=== PATIENT | female | born 1985 | race Hispanic/Latino ===

== ENCOUNTER 2017-08-26 23:29 | Emergency (ER) | payer OTHER | END 2017-08-27 00:35 | disposition home or self-care (01) | LOC: EDH 23:29 | DX: J02.9 Acute pharyngitis, unspecified (principal); R11.10 Vomiting, unspecified; H92.09 Otalgia, unspecified ear ==

== ENCOUNTER 2017-10-22 19:42 | Emergency (ER) | payer OTHER ==
[2017-10-22] MEDS ORDERED: ACETAMINOPHEN EXTRA STRENGTH 500 MG TABLET ONE (20:47)
[2017-10-22] MEDS ORDERED: ONDANSETRON ODT 4 MG TAB ONE (20:47)
[2017-10-22 21:06] LABS: BASOPHILS % (AUTO) 0.4 % (0.0-5.0); EOSINOPHILS % (AUTO) 0.9 % (0.0-8.0); HEMATOCRIT 41.2 % (36-48); LYMPHOCYTES % (AUTO) 33.9 % (21.0-51.0); MEAN CORPUSCULAR HGB CONC 34.4 g/dL (32.0-36.0); MEAN CORPUSCULAR VOLUME 81.5 fL (79-99); MONOCYTES % (AUTO) 4.7 % (3.0-13.0); NEUTROPHILS % (AUTO) 60.1 % (40.0-77.0); PLATELET COUNT (AUTO) 397 K/uL (130-400); RED BLOOD CELL COUNT(AUTO) 5.05 MIL/uL (4.00-5.50); RED CELL DISTRIBUTION WIDTH 13.3 % (11.0-15.5); WHITE BLOOD COUNT (AUTO) 10.6 K/uL (4.8-10.8)
[2017-10-22 21:14] LABS: CREATININE 0.7 mg/dL (0.5-1.5); POTASSIUM 3.8 mmol/L (3.5-5.1)
[2017-10-22 21:14] LABS: APPEARANCE,URINE Clear (CLEAR); BILIRUBIN,URINE Negative (NEGATIVE); COLOR,URINE Yellow (YELLOW); GLUCOSE, URINE (UA) Negative (NEGATIVE); KETONES,URINE 40 mg/dL (NEGATIVE); LEUKOCYTE ESTERASE ,URINE Trace (NEGATIVE); NITRATE,URINE Negative (NEGATIVE); OCCULT BLOOD,URINE Moderate (NEGATIVE); PROTEIN,URINE Negative (NEGATIVE)
[2017-10-22 21:19] LABS: ALBUMIN 3.7 g/dL (3.5-5.0); BILIRUBIN,TOTAL 0.1 mg/dL (0.2-1.0); TOTAL PROTEIN, SERUM 7.9 g/dL (6.0-8.3)
[2017-10-22 21:22] LABS: HCG,QUAL RESULT NEGATIVE (NEGATIVE)
[2017-10-22 21:26] LABS: BACTERIA,URINE Rare /HPF (None Seen); RBC,URINE None Seen /HPF (0-1); SQUAMOUS EPITHELIAL CELL,UR 0-2 /HPF (0-2)
== END 2017-10-22 21:55 | disposition home or self-care (01) ==
LOC: EDH 19:42
DX: J02.9 Acute pharyngitis, unspecified (principal); H92.09 Otalgia, unspecified ear; R10.13 Epigastric pain
CPT/HCPCS: 36415; 80053; 81001; 81025; 83690; 85025; 87880; 93005

== ENCOUNTER 2024-06-17 16:22 | Emergency (ER) | payer BC ==
[~2024-06-17] VITALS: Ht 157.5 cm; Wt 68.0 kg
[~2024-06-17 16:22] MED LIST: METH-662 PO
[2024-06-17] MEDS: acetaMINOPHEN 500 MG TABLET PO SCH (16:36)
--- NOTE | 2024-06-17 17:25 | ERN ---
General Chief Complaint: Mechanical Fall Stated Complaint: FALL Time Seen by MD: 16:25 Source: patient History of Present Illness Initial Comments PATIENT IS A 38-YEAR-OLD FEMALE COMING IN TO BE EVALUATED HER LEFT KNEE. PER PATIENT SHE WAS WALKING INTO A PEDIATRIC CLINIC AND SLIPPED ON WET FLOOR LANDING ON HER LEFT KNEE. SHE STATES THAT SHE WAS PAIN IN HER LEFT KNEE THAT IS E XACERBATED WITH MOVEMENT. Allergies: Coded Allergies: No Known Drug Allergies (Unverified Allergy, Unknown, 12/25/18) Home Meds Active Scripts Methocarbamol (Robaxin) 750 Mg Tab, 750 MG PO TIDP PRN for PAIN, #9 TAB Prov:MARTHA JOHNSTON 09/11/23 Past Medical History Past Medical History: No Pertinent History Past Surgical History: Other Surgical History Other: FALLOPIAN TUBE REMOVAL ROS Dictation CONSTITUTIONAL: NO CHILLS, NO FEVER, NO WEAKNESS, NO DIAPHORESIS, NO MALAISE. HEAD/FACE: NO SIGNS OF TRAUMA. EENT: NO EYE PAIN, NO BLURRED VISION, NO TEARING, NO DOUBLE VISION, NO EAR PAIN, NO EAR DISCHARGE, NO NOSE PAIN, NO NASAL CONGESTION, NO THROAT PAIN, NO THROAT SWELLING, NO MOUTH PAIN. RESPIRATORY: NO COUGH, NO ORTHOPNEA, NO SOB, NO STRIDOR, NO WHEEZING. CARDIOVASCULAR: NO CHEST PAIN, NO EDEMA, NO PALPITATIONS, NO SYNCOPE. GASTROINTESTINAL/ABDOMINAL: NO ABDOMINAL PAIN, NO CONSTIPATION, NO DIARRHEA, NO NAUSEA, NO VOMITING. GENITOURINARY: NO ABNORMAL DISCHARGE, NO DYSURIA, NO FREQUENT URINATION, NO HEMATURIA. NO COMPLAINTS OF PAIN IN THE GENITALS. MUSCULOSKELETAL: NO BACK PAIN, NO GOUT, NO JOINT PAIN, NO JOINT SWELLING, NO MUSCLE PAIN, NO MUSCLE STIFFNESS, NO NECK PAIN. INTEGUMENTARY: NO CHANGE IN COLOR, NO CHANGE IN HAIR/NAILS, NO DRYNESS, NO LESION, NO LUMPS, NO RASH. NEUROLOGICAL/PSYCH: NO ANXIETY, NOT DEPRESSED, NO EMOTIONAL PROBLEM, NO H EADACHE, NO NUMBNESS, NO PRE-EXISTING DEFICIT, NO HISTORY OF SEIZURES, NO TREMORS, NO WEAKNESS. HEMATOLOGIC/LYMPHATIC: NOT ANEMIC, NO HISTORY OF BLOOD CLOTS, NO APPARENT BLEEDING, NO BRUISING, GLANDS NOT SWOLLEN. ALL SYSTEMS NEGATIVE, EXCEPT NOTED. Physical Exam Physical Exam Dictation VITAL SIGNS: REVIEWED. GENERAL APPEARANCE: ALERT, ORIENTED X3, NO ACUTE DISTRESS, OBESE. HEAD AND FACE: NON-TRAUMATIC. EYES: PERRL, PINK CONJUNCTIVAS, EYELID NO TRAUMA, ANTERIOR CHAMBER CLEAR. EARS: PINNAS INTACT AND NO SIGNS OF TRAUMA OR ERYTHEMA. EAR CANALS CLEAR AND NO DISCHARGE. TMS NO ERYTHEMA. NOSE: NO DISCHARGE, NO BLEEDING. OROPHARYNX: MOUTH NORMAL, TEETH NO CARIES, TONGUE PINK. PHARYNX CLEAR, NO ERYTHEMA. TONSILS NO EXUDATES, NO ABSCESSES NOTED. MUCOUS MEMBRANE MOIST. NECK: SUPPLE, NON-TENDER, NO THYROMEGALY, NO MASSES, NO JVD, NO BRUITS. BREAST: DEFERRED. CHEST: NO TENDERNESS, NO CREPITUS, NO PARADOXICAL MOVEMENT, NO RETRACTIONS. LUNGS: CLEAR, WELL-VENTILATED, SYMMETRIC, NO RALES, NO WHEEZING, NO RHONCHI, NO STRIDOR, GOOD BREATH SOUNDS BILATERALLY. HEART: REGULAR RATE, REGULAR RHYTHM, NO MURMUR, NO GALLOPS. VASCULAR: NO PERIPHERAL EDEMA. ABDOMEN: SOFT, POSITIVE BOWEL SOUNDS, NONDISTENDED, NO GUARDING, NONTENDER, NO REBOUND, NO MASSES NO HEPATOMEGALY, NO SPLENOMEGALY, NO RODRIGUEZ'S SIGN, NO HERNIAS. RECTAL: DEFERRED. GENITAL: DEFERRED. NEUROLOGICAL: NORMAL SPEECH, GROSS MOTOR FUNCTION INTACT, GROSS SENSORY FUNCTION INTACT. MUSCULOSKELETAL: NECK NONTENDER, FULL RANGE OF MOTION, BACK NONTENDER, FULL RANGE OF MOTION. EXTREMITIES: NONTENDER, FULL RANGE OF MOTION. SKIN: COLOR PINK, DRY, NO TURGOR, NO RASH, NO LACERATIONS, NO ABRASIONS, NO CONTUSIONS. LYMPHATICS: DEFERRED. Results EKG/XRAY/US/CT/MRI X-RAY Comment [address] [address] IMAGING REPORT Signed PATIENT: ASHLEY ARENAS MR#: [id number] : 1985 SEX: F AGE: 38 LOCATION: [facility] ORDER 163 STATUS: REG ER REPORT#: [id number] SERVICE 29 REASON: FALL ORDERING PHYSICIAN: NAYANA MATTHEWS MD PROCEDURE: KNEE 3V LT - KNEE 3VWS LT LEFT KNEE RADIOGRAPHS - 3 VIEWS INDICATION: Pain COMPARISON: None FINDINGS: AP, lateral, and oblique views. No fracture or dislocation identified. No significant joint effusion is present. Overlying soft tissues appear normal. No radiopaque foreign body noted. IMPRESSION: No evidence for fracture or dislocation. DICTATED BY: DAT ZAVALA MD DATE: 06/17/241758 ELECTRONICALLY SIGNED BY: DAT ZAVALA MD DATE: 06/17/241801 [place] [id number] [place] [id number] IMAGING REPORT Signed PATIENT: ASHLEY ARENAS MR#: [id number] : 1985 SEX: F AGE: 38 LOCATION: [facility] ORDER 45 STATUS: REG ER REPORT#: [id number] SERVICE 44 REASON: FALL ORDERING PHYSICIAN: NAYANA MATTHEWS MD PROCEDURE: KNEE 3V RT - KNEE 3VWS RT RIGHT KNEE RADIOGRAPHS - 3 VIEWS INDICATION: Pain after fall COMPARISON: None FINDINGS: AP, lateral, and oblique views. No acute fracture or dislocation identified. No significant joint effusion is present. Overlying soft tissues appear normal. IMPRESSION: No evidence for fracture or dislocation. DICTATED BY: DAT ZAVALA MD DATE: 06/17/241756 ELECTRONICALLY SIGNED BY: DAT ZAVALA MD DATE: 06/17/241800 [facility] MDM: DIFFERENTIAL DIAGNOSIS: FALL, KNEE STRAIN, HIP STRAIN, PATIENT IS A 38-YEAR-OLD FEMALE COMING IN TO BE EVALUATED FOR BILATERAL KNEE PA IN. INITIALLY PATIENT STATED THAT HER LEFT KNEE WAS MORE TENDER BUT WHEN GETTING X-RAYS SHE STATES THAT HER RIGHT KNEE HURTS WELL. X-RAY DID NOT DISCLOSE ACUTE FINDINGS. I ADVISED HER APPROPRIATE FOLLOW UP WITH PCP IN 1-2 DAYS. ED Course Orders Procedure Category Date Status Time Knee 3vws Lt RAD 06/17/24 Resulted 16:30 Acetaminophen 500mg PHA 06/17/24 In Process Tab (Tylenol 500mg T 16:30 ,Urine Test LAB 06/17/24 Logged 17:35 Knee 3vws Rt RAD 06/17/24 Resulted 17:45 Current Medications Medications (Trade) Dose Ordered Sig/Luciano Route PRN Reason Start Time Stop Time Status Last Admin Dose Admin Acetaminophen (TYLenol 500MG TAB) 500 mg ONCE PO 06/17/24 16:30 06/17/24 21:30 06/17/24 16:36 Vital Signs Date Time Temp Pulse Resp B/P (MAP) Pulse Ox O2 Delivery O2 Flow Rate FiO2 06/17/24 17:33 98.6 70 20 130/78 100 Room Air* 0 21 06/17/24 16:27 98.6 66 20 132/88 100 Room Air* 0 21 06/17/24 16:24 98.8 86 18 134/83 97 Room Air 0 DX & DISP Disposition: Discharge Departure Impression: Primary Impression: Bilateral knee pain Additional Impression: Fall Condition: Stable Scripts Methocarbamol (Robaxin) 750 Mg Tab 1 TAB PO BID for 5 Days, #10 TAB 0 Refills Prov: NAYANA MATTHEWS MD 06/17/24 Naproxen (Naproxen) 375 Mg Tablet.dr 375 MG PO BID for 7 Days, #14 TAB Prov: NAYANA MATTHEWS MD 06/17/24 Additional Instructions: FOLLOW-UP WITH PRIMARY CARE PROVIDER IN 1 TO 2 DAYS. TAKE MEDICATIONS DIRECTED HERE IN THE EMERGENCY ROOM. OKAY TO CONTINUE HOME MEDICATIONS UNLESS OTHERWISE DISCUSSED DURING YOUR VISIT IN THE EMERGENCY ROOM TODAY. RETURN TO YOUR NEAREST EMERGENCY ROOM IF SYMPTOMS WORSEN OR IF THERE IS NO IMPROVEMENT. CALL 911 IF YOU NEED IMMEDIATE ASSISTANCE. TAKE TYLENOL [id number] NEEDED AND IF NO CONTRAINDICATIONS ARE PRESENT. INCREASE ORAL HYDRATION. A WOUND CULTURE OR URINE CULTURE WAS ORDERED HERE IN THE EMERGENCY ROOM DEPARTMENT PLEASE FOLLOW-UP WITH PRIMARY CARE PROVIDER AND ADVISE THEM TO GET REPEAT PORTS FROM OUR FACILITY. IF YOU HAD ANY SILVINO WRAP/SPLINTS THAT WERE APPLIED HERE, PLEASE DO NOT REMOVE THEM UNTIL YOU SEE YOUR PRIMARY CARE OR SPECIALTY. REFERRALS: Referrals: LINDSEY LAWSON (PCP) Time of Disposition: 18:06 NAYANA MATTHEWS MD Jun 17, 2024 17:25
--- NOTE | 2024-06-17 18:01 | HMCIMG ---
RIGHT KNEE RADIOGRAPHS - 3 VIEWS INDICATION: Pain after fall COMPARISON: None FINDINGS: AP, lateral, and oblique views. No acute fracture or dislocation identified. No significant joint effusion is present. Overlying soft tissues appear normal. IMPRESSION: No evidence for fracture or dislocation.
--- NOTE | 2024-06-17 18:02 | HMCIMG ---
LEFT KNEE RADIOGRAPHS - 3 VIEWS INDICATION: Pain COMPARISON: None FINDINGS: AP, lateral, and oblique views. No fracture or dislocation identified. No significant joint effusion is present. Overlying soft tissues appear normal. No radiopaque foreign body noted. IMPRESSION: No evidence for fracture or dislocation.
[2024-06-17] MEDS ORDERED: NAPR-1505 PO (18:07)
[2024-06-17] MEDS ORDERED: METH-662 PO (18:07)
[2024-06-17 18:48] VITALS: BP 128/88; PULSE 70; RESP 20; TEMP 98.4; O2SAT 100
== END 2024-06-17 18:57 | disposition home or self-care (01) ==
LOC: EDH 16:22
DX: M25.561 Pain in right knee (principal); M25.562 Pain in left knee; Z79.899 Other long term (current) drug therapy; W01.0XXA Fall on same level from slipping, tripping and stumbling without subsequent striking against object, initial encounter; Y93.89 Activity, other specified; Y92.89 Other specified places as the place of occurrence of the external cause; Y99.8 Other external cause status
CPT/HCPCS: 73562; 99283